=== PATIENT | male | born 1975 | race Caucasian/White ===

== ENCOUNTER 2016-09-26 17:17 | Emergency (ER) | payer OTHER ==
[~2016-09-26] VITALS: Ht 177.8 cm; Wt 99.8 kg
[2016-09-26 17:19] VITALS: BP 122/60
[2016-09-26] MEDS: ACETAMINOPHEN EXTRA STRENGTH 500 MG TAB PO ONE (18:05)
[2016-09-26] MEDS: NACL 0.9% 1,000 ML IV SCH (18:06)
[2016-09-26] MEDS: ONDANSETRON 4 MG/2 ML VIAL IVP ONE (18:06)
[2016-09-26 18:13] LABS: APPEARANCE,URINE CLEAR (CLEAR); BILIRUBIN,URINE NEGATIVE (NEGATIVE); BLOOD, URINE 3+ (NEGATIVE); COLOR,URINE YELLOW (YELLOW); LEUKOCYTE ESTERASE ,URINE NEGATIVE (NEGATIVE); NITRITE, URINE NEGATIVE (NEGATIVE); PROTEIN,URINE NEGATIVE (NEGATIVE); UGLUCOSE NEGATIVE (NEGATIVE); UROBILINOGEN,URINE 0.2 EU/dL (0.2 - 1)
[2016-09-26 18:19] LABS: BASOPHILS # (AUTO) 0.2 K/uL (0.00-0.22); BASOPHILS % (AUTO) 1.5 % (0.0-2.0); EOSINOPHILS # (AUTO) 0.1 K/uL (0-0.4); EOSINOPHILS % (AUTO) 1.1 % (0.0-4.0); HEMATOCRIT 45.5 % (36-52); HEMOGLOBIN 14.6 g/dL (12.0-18.0); LYMPHOCYTES # (AUTO) 0.5 K/uL (2.0-11.5); LYMPHOCYTES % (AUTO) 3.4 % (20.5-51.1); MEAN CORPUSCULAR HEMOGLOBIN 27 pg (27-31); MEAN CORPUSCULAR HGB CONC 32 g/dL (33-37); MEAN CORPUSCULAR VOLUME 83 fL (80-94); MONOCYTES # (AUTO) 0.4 K/uL (0.8-1.0); MONOCYTES % (AUTO) 2.7 % (1.7-9.3); NEUTROPHILS # (AUTO) 12.1 K/uL (1.8-7.7); NEUTROPHILS % (AUTO) 91.3 % (42.2-75.2); PLATELET COUNT (AUTO) 288 K/uL (140-450); RED BLOOD CELL COUNT(AUTO) 5.51 MIL/uL (4.20-6.10); RED CELL DISTRIBUTION WIDTH 11.8 % (11.6-13.7); WHITE BLOOD COUNT (AUTO) 13.3 K/uL (4.8-10.8)
[2016-09-26 18:26] LABS: BACTERIA,URINE RARE /HPF (None Seen); RBC,URINE >100 /HPF (0-5); SQUAMOUS EPITHELIAL CELL,UR None Seen /LPF (0-3 (FEW)); WBC,URINE 0-5 (RARE) /HPF (0-5)
[2016-09-26 18:34] LABS: INR 1.1 (0.8-1.2); PROTHROMBIN TIME 10.5 secs (10.8-13.4)
[2016-09-26 18:40] LABS: ANION GAP 12.2 (8-16); CALCIUM 8.6 mg/dL (8.5-10.1); CARBON DIOXIDE 28.8 mmol/L (21-32)
[2016-09-26 18:41] LABS: ALBUMIN 3.8 g/dL (3.4-5.0); LACTIC ACID 1.6 mmol/L (0.4-2.0); TOTAL BILIRUBIN 0.6 mg/dL (0.0-1.0)
[2016-09-26 18:48] LABS: AMPHETAMINE, URINE POSITIVE ng/ml (NEG <=1000); BARBITURATE, URINE NEGATIVE ng/ml (NEG <=200); BENZODIAZEPINE, URINE NEGATIVE ng/mL (NEG <=200); CANNABINOID, URINE NEGATIVE ng/mL (NEG <=50); COCAINE, URINE NEGATIVE ng/mL (NEG <=300); OPIATE, URINE NEGATIVE ng/mL (NEG <=2000); PHENCYCLIDINE SCREEN,URINE NEGATIVE ng/mL (NEG <=25)
[2016-09-26 19:37] VITALS: BP 118/59
== END 2016-09-26 19:35 | disposition home or self-care (01) ==
LOC: MED 17:17
DX: R31.9 Hematuria, unspecified (principal); M79.1 Myalgia; L08.9 Local infection of the skin and subcutaneous tissue, unspecified
CPT/HCPCS: 36415; 71010; 80053; 80305; 81001; 82150; 82553; 83605; 83690; 83880; 85025; 85610; 85730; 87040; 87086; 96361; 96374; 99285; J2405; Q0092